=== PATIENT | female | born 1995 | race Caucasian/White ===

== ENCOUNTER 2018-05-20 22:42 | Emergency (ER) | payer OTHER ==
[2018-05-21] MEDS: FAMOTIDINE 20 MG TAB PO (00:57)
[2018-05-21] MEDS: ONDANSETRON (ODT) 4 MG TAB ODT (00:58)
[2018-05-21] MEDS: EPINEPHrine 1 MG INJ SC (01:04)
[2018-05-21] MEDS: METHYLPREDNISOLONE 125 MG INJ IM (01:07)
[2018-05-21] MEDS: DIPHENHYDRAMINE 50 MG INJ IM (01:07)
== END 2018-05-21 01:41 | disposition home or self-care (01) ==
LOC: FTE 22:42
DX: R21 Rash and other nonspecific skin eruption (principal)
CPT/HCPCS: 96372; 99284-25